=== PATIENT | female | born 1965 | race Caucasian/White ===

== ENCOUNTER 2016-07-18 11:15 | Outpatient (CLI) | payer MEDICAID ==
--- NOTE | 2016-07-18 20:23 | RAD ---
LEFT KNEE FOUR VIEWS: Date: 07-18-16 FINDINGS: A small joint effusion is probably present. I see no fracture or acute bony change. The joint space is normal in width. The patella appears intact. IMPRESSION: Small joint effusion. POS: HOME
--- NOTE | 2016-07-18 21:12 | RAD ---
RIGHT KNEE FOUR VIEWS: Date: 07-18-16 FINDINGS: No acute fracture was seen. The patella appears intact. If there is any joint fluid, it is minimal. Only one view showed a little irregularity in the central portion of the tibial plateau, but in the absence of a large joint effusion, it is highly unlikely to be a recent fracture. The articular surf aces are all smooth. The joint space seems normal. IMPRESSION: No acute finding. POS: HOME
== END 2016-07-18 11:16 | disposition home or self-care (01) ==
LOC: BURRAD 11:15
PROVIDERS: ATTEND Physician Assistant
DX: M25.561 Pain in right knee (principal); M25.562 Pain in left knee

== ENCOUNTER 2016-07-18 14:49 | Outpatient (CLI) | payer MEDICAID ==
[2016-07-18 15:44] LABS: Anion Gap 12 mmol/L (10-20); BUN (Urea Nitrogen) 8 mg/dL (9.8-20.1); Calc. Creatinine Clearance 0 mL/min (70-130); Calcium 8.8 mg/dL (7.8-10.44); Carbon Dioxide 26 mmol/L (22-29); Chloride 108 mmol/L (98-107); Estimated GFR-MDRD 81; Glucose 85 mg/dL (70-105); Potassium 4.7 mmol/L (3.5-5.1); Sodium 141 mmol/L (136-145)
[2016-07-18 16:06] LABS: #Basophils 0.2 thou/uL (0.0-0.2); #Eosinphils 0.4 thou/uL (0.0-0.7); #Monocytes 0.8 thou/uL (0.11-0.59); #Neutrophils 5.1 thou/uL (1.40-6.50); %Basophils 1.8 % (0.0-1.0); %Eosinophils 4.4 % (0.0-10.0); %Lymphocytes 31.9 % (21.0-51.0); %Monocytes 8.8 % (0.0-10.0); %Neutrophils 53.2 % (42.0-75.0); Hemoglobin 12.9 g/dL (12.0-16.0); Mean Corpuscular Hemoglobin 33.2 pg (27.0-31.0); Mean Platelet Volume 5.4 fL (7.4-10.4); Platelet Count 442 thou/uL (130-400); RBC Distribution Width 14.7 % (11.5-14.5); White Blood Cell (WBC) Count 9.5 thou/uL (4.8-10.8)
== END 2016-07-18 14:50 | disposition home or self-care (01) ==
LOC: HPCALD 14:49
PROVIDERS: ATTEND Physician Assistant
DX: F43.21 Adjustment disorder with depressed mood (principal)
CPT/HCPCS: 36415; 80048; 84443; 85025

== ENCOUNTER 2017-04-03 17:24 | Emergency (ER) | payer MEDICARE, OTHER ==
[2017-04-03] MEDS ORDERED: ALPRAZolam 0.5 MG TAB ONE (18:40)
[2017-04-03] MEDS ORDERED: Ketorolac Tromethamine 60 MG/2 ML VIAL ONE (18:41)
--- NOTE | 2017-04-03 21:19 | RAD ---
PELVIS ONE VIEW: Date: 04-03-2017 FINDINGS: The bony pelvis appears intact with no evidence of fracture. The SI joints are symmetrical and the sy mphysis shows no widening or off set. The hips and pubic rings appear intact. IMPRESSION: No acute bony finding. POS: HOME
--- NOTE | 2017-04-03 21:20 | RAD ---
LEFT KNEE FOUR VIEWS: Date: 04-03-2017 Comparison: 07-08-16 FINDINGS: There is a large joint effusion present today. No fracture was appreciated on these films. The articu lar surfaces appear smooth. IMPRESSION: Large joint effusion. The possibility of an internal derangement is raised. POS: HOME
--- NOTE | 2017-04-03 21:22 | RAD ---
LEFT FOOT THREE VIEWS: Date: 04-03-2017 FINDINGS: No gross fracture was indicated. One view the fourth metatarsal neck seemed slightly irregular, but o n the adjacent view this area appeared completely normal. Unless there was point tenderness here, I w ould tend to dismiss the finding. The remainder of the foot appears intact. There is a small bony den sity seen posterior to the calcaneus at the Achilles' insertion. I doubt that this is recent. IMPRESSION: No definite acute findings. Correlate comments above with physical exam. POS: HOME
== END 2017-04-03 19:30 | disposition home or self-care (01) ==
LOC: BURERS 17:24
DX: S93.602A Unspecified sprain of left foot, initial encounter (principal); F17.210 Nicotine dependence, cigarettes, uncomplicated; W18.30XA Fall on same level, unspecified, initial encounter
CPT/HCPCS: 72170; 96372; J1885